=== PATIENT | female | born 1995 ===

== ENCOUNTER 2018-01-08 15:57 | Emergency (ER) | END 2018-01-08 17:50 | disposition left against medical advice (07) | LOC: ER 15:57 | DX: Z53.21 Procedure and treatment not carried out due to patient leaving prior to being seen by health care provider (principal) ==

== ENCOUNTER 2018-01-19 12:18 | Emergency (ER) | END 2018-01-19 12:35 | disposition left against medical advice (07) | LOC: ER 12:18 | DX: Z53.21 Procedure and treatment not carried out due to patient leaving prior to being seen by health care provider (principal); W54.0XXA Bitten by dog, initial encounter ==